=== PATIENT | female | born 1945 | race Caucasian/White ===

== ENCOUNTER 2017-08-27 14:58 | Inpatient (IN) | payer MEDICAID, OTHER ==
[~2017-08-27] VITALS: Ht 154.9 cm; Wt 78.5 kg
[~2017-08-27 14:58] MED LIST: ALBU6.7H INH; ATOR20TA65 PO; CARV25TA47 PO; DIGO250T4 PO; FAMO20TA8 PO; FERR-63 PO; FURO80TA3 PO; LISI30TA36 PO; METH500T PO; NITR0.4T SL; RIVA20TA PO; SOTA80TA PO; iron PO
[2017-08-27 17:25] LABS: BASOPHILS % 0.8 % (0.0-2.0); HEMOGLOBIN. 12.8 g/dL (12.0-16.0); LYMPHOCYTES % 13.5 % (20.0-50.0); MEAN CORPUSCULAR HEMOGLOBIN 31.1 pg (28.0-32.0); MEAN CORPUSCULAR VOLUME 92.2 fL (81.0-99.0); MEAN PLATELET VOLUME 9.6 fl (7.4-10.4); MONOCYTES % 11.8 % (2.0-8.0); NEUTROPHILS % 70.9 % (40.0-76.0); PLATELET 282 x1000/uL (130-400); RED BLOOD CELL COUNT 4.12 mill/uL (4.2-5.4); RED CELL DISTRIBUTION WIDTH 13.7 % (11.6-14.6)
[2017-08-27 17:31] LABS: CHLORIDE 104 mEq/L (98-107)
[2017-08-27 17:34] LABS: INR 1.2; PROTHROMBIN TIME 12.7 sec (9.4-11.6)
[2017-08-27] MEDS ORDERED: MAGNESIUM/ALUMINUM HYDROXIDE/SIMETHICONE 30ML UDC PO STA (19:48)
[2017-08-27] MEDS ORDERED: ASPIRIN 81MG TABLET PO ONE (20:00)
[2017-08-27] MEDS ORDERED: FUROSEMIDE 20MG TABLET PO ONE (20:00)
[2017-08-27] MEDS ORDERED: GUAIFENESIN/CODEINE 100-10MG/5ML UDC PO ONE (21:45)
[2017-08-28] VITALS (7 sets, daily range): BP systolic 96–120; BP diastolic 43–72
[2017-08-28] MEDS ORDERED: SUCR1TAB30 PO (02:10)
[2017-08-28] MEDS ORDERED: ONDA4SOL2 PO (02:10)
[2017-08-28] MEDS ORDERED: OMEP20TA2 PO (02:10)
[2017-08-28] MEDS ORDERED: LISI-604 PO (02:11)
[2017-08-28 02:29] LABS: CREATINE KINASE MB FRACTION 0.7 ng/mL (0.5-3.6)
[2017-08-28] MEDS: HYDROCODONE/ACETAMINOPHEN 5/325MG TABLET PO PRN ×3 (03:19→21:35)
[2017-08-28] MEDS: IPRATROPIUM/ALBUTEROL 0.5-3(2.5)MG/3ML NEB HHN SCH ×5 (04:17→21:18)
[2017-08-28 05:26] LABS: *AMPHETAMINES SCREEN URINE NEGATIVE (NEGATIVE)
[2017-08-28 05:27] LABS: *BARBITURATES SCREEN URINE NEGATIVE (NEGATIVE); *BENZODIAZEPINES SCREEN URINE NEGATIVE (NEGATIVE); *COCAINE SCREEN URINE NEGATIVE (NEGATIVE); METHADONE URINE SCREEN NEGATIVE (NEGATIVE); OPIATES URINE SCREEN PRESUMTIVE POSITIVE (NEGATIVE)
[2017-08-28 05:28] LABS: CANNABINOID URINE SCREEN NEGATIVE (NEGATIVE)
[2017-08-28 06:46] LABS: PHENCYCLIDINE URINE SCREEN NEGATIVE (NEGATIVE)
[2017-08-28] MEDS: DIGOXIN 125MCG TABLET PO SCH (08:40)
[2017-08-28] MEDS: CARVEDILOL 25MG TABLET PO SCH ×2 (08:42→21:00)
[2017-08-28] MEDS: LISINOPRIL 20MG TABLET PO SCH ×2 (08:43→21:00)
[2017-08-28] MEDS: FERROUS SULFATE 325MG TABLET PO SCH (08:56)
[2017-08-28] MEDS: SUCRALFATE 1G TABLET PO SCH ×4 (08:56→21:28)
[2017-08-28] MEDS ORDERED: FUROSEMIDE 40MG TABLET PO SCH (09:00)
[2017-08-28] MEDS ORDERED: ENOXAPARIN 30MG/0.3ML SYR SUBCUT SCH (09:00)
[2017-08-28 12:22] LABS: BASOPHILS % 0.4 % (0.0-2.0); EOSINOPHILS % 3.2 % (0.0-5.0); HEMATOCRIT. 35.7 % (36.0-48.0); HEMOGLOBIN. 11.8 g/dL (12.0-16.0); LYMPHOCYTES % 13.2 % (20.0-50.0); MEAN CORPUSCULAR HEMOGLOBIN 30.6 pg (28.0-32.0); MEAN CORPUSCULAR VOLUME 92.5 fL (81.0-99.0); MEAN PLATELET VOLUME 9.7 fl (7.4-10.4); MONOCYTES % 13.4 % (2.0-8.0); NEUTROPHILS % 69.8 % (40.0-76.0); PLATELET 274 x1000/uL (130-400); RED BLOOD CELL COUNT 3.85 mill/uL (4.2-5.4); RED CELL DISTRIBUTION WIDTH 13.8 % (11.6-14.6)
[2017-08-28 12:30] LABS: CHLORIDE 104 mEq/L (98-107)
[2017-08-28 12:38] LABS: PHOSPHORUS 2.1 mg/dL (2.5-4.9)
[2017-08-28 12:43] LABS: CREATINE KINASE MB FRACTION 0.6 ng/mL (0.5-3.6)
[2017-08-28] MEDS: GUAIFENESIN-DM 200MG-20MG/10ML UDC PO PRN ×3 (13:51→21:35)
[2017-08-28] MEDS: RIVAROXABAN 20 MG TABLET PO SCH (17:57)
[2017-08-28] MEDS: ATORVASTATIN CALCIUM 20MG TABLET PO SCH (21:28)
[2017-08-29] VITALS (11 sets, daily range): BP systolic 97–130; BP diastolic 50–79
[2017-08-29] MEDS: IPRATROPIUM/ALBUTEROL 0.5-3(2.5)MG/3ML NEB HHN SCH ×2 (01:51→05:45)
[2017-08-29] MEDS: FUROSEMIDE 40MG TABLET PO SCH (09:43)
[2017-08-29] MEDS: SUCRALFATE 1G TABLET PO SCH ×4 (09:43→21:24)
[2017-08-29] MEDS: FERROUS SULFATE 325MG TABLET PO SCH (09:43)
[2017-08-29] MEDS: CARVEDILOL 25MG TABLET PO SCH ×2 (09:44→21:25)
[2017-08-29] MEDS: DIGOXIN 125MCG TABLET PO SCH (09:45)
[2017-08-29] MEDS: LISINOPRIL 20MG TABLET PO SCH (09:45)
[2017-08-29 11:30] LABS: BG BASE EXCESS 6.1 mmol/L (-2.0-2.0); BG CARBOXYHEMOGLOBIN 0.5 % (0.5-1.5); BG DEOXYHEMOGLOBIN 2.9 % (0.0-5.0); BG FRACTION INSPIRED OXYGEN 40; BG HCO3 ACT 30.7 mmol/L (22.0-26.0); BG METHEMOGLOBIN 0.3 % (0.0-1.5); BG OXYGEN SATURATION 97.1 % (92.0-98.5); BG OXYHEMOGLOBIN 96.3 % (94.0-97.0); BG PCO2 44.2 mmHg (35.0-45.0); BG PO2 90.8 mmHg (75.0-100.0); BG SAMPLE SITE LEFT RADIAL; BG TOTAL HEMOGLOBIN 13.4 g/dL (12.0-18.0); BG VENT MODE NASAL CANNULA
[2017-08-29] MEDS: GUAIFENESIN-DM 200MG-20MG/10ML UDC PO PRN ×3 (12:20→23:56)
[2017-08-29] MEDS ORDERED: IPRATROPIUM BROMIDE (0.02%) 0.5MG/2.5ML NEB HHN PRN (13:45)
[2017-08-29] MEDS: DILTIAZEM HCL 30MG TABLET PO SCH ×2 (14:56→21:25)
[2017-08-29] MEDS: BUDESONIDE 0.5MG/2ML NEB HHN SCH (15:14)
[2017-08-29] MEDS: IPRATROPIUM BROMIDE (0.02%) 0.5MG/2.5ML NEB HHN SCH ×2 (15:15→20:25)
[2017-08-29] MEDS: RIVAROXABAN 20 MG TABLET PO SCH (16:21)
[2017-08-29] MEDS ORDERED: ALBUTEROL (0.083%) 2.5MG/3ML NEB HHN NR (20:45)
[2017-08-29] MEDS: GUAIFENESIN 600MG ER TABLET PO SCH (21:24)
[2017-08-29] MEDS: ATORVASTATIN CALCIUM 20MG TABLET PO SCH (21:24)
[2017-08-30] VITALS (12 sets, daily range): BP systolic 90–144; BP diastolic 52–88
[2017-08-30] MEDS: IPRATROPIUM/ALBUTEROL 0.5-3(2.5)MG/3ML NEB HHN SCH ×6 (00:25→21:07)
[2017-08-30] MEDS: BUDESONIDE 0.5MG/2ML NEB HHN SCH ×3 (00:27→21:08)
[2017-08-30] MEDS: DILTIAZEM HCL 30MG TABLET PO SCH ×3 (06:00→22:00)
[2017-08-30] MEDS: GUAIFENESIN 600MG ER TABLET PO SCH ×2 (09:59→20:35)
[2017-08-30] MEDS: SUCRALFATE 1G TABLET PO SCH ×4 (09:59→20:35)
[2017-08-30] MEDS: FERROUS SULFATE 325MG TABLET PO SCH (09:59)
[2017-08-30] MEDS: LISINOPRIL 20MG TABLET PO SCH (09:59)
[2017-08-30] MEDS: FUROSEMIDE 40MG TABLET PO SCH (10:00)
[2017-08-30] MEDS: CARVEDILOL 25MG TABLET PO SCH ×2 (10:00→20:50)
[2017-08-30] MEDS: DIGOXIN 125MCG TABLET PO SCH (10:00)
[2017-08-30] MEDS: BENZONATATE 100MG CAPSULE PO SCH ×3 (14:00→21:29)
[2017-08-30] MEDS: RIVAROXABAN 20 MG TABLET PO SCH (17:50)
[2017-08-30] MEDS: ATORVASTATIN CALCIUM 20MG TABLET PO SCH (20:36)
[2017-08-30] MEDS: HYDROCODONE/ACETAMINOPHEN 5/325MG TABLET PO PRN (21:30)
[2017-08-31] VITALS (12 sets, daily range): BP systolic 102–130; BP diastolic 38–75
[2017-08-31] MEDS: GUAIFENESIN-DM 200MG-20MG/10ML UDC PO PRN ×5 (00:16→23:53)
[2017-08-31] MEDS: IPRATROPIUM/ALBUTEROL 0.5-3(2.5)MG/3ML NEB HHN SCH ×6 (00:49→20:55)
[2017-08-31] MEDS: ZOLPIDEM TARTRATE 5MG TABLET PO PRN ×2 (01:48→22:28)
[2017-08-31] MEDS: HYDROCODONE/ACETAMINOPHEN 5/325MG TABLET PO PRN ×2 (03:59→10:19)
[2017-08-31] MEDS: DILTIAZEM HCL 30MG TABLET PO SCH ×3 (05:49→22:26)
[2017-08-31] MEDS: BENZONATATE 100MG CAPSULE PO SCH ×3 (06:02→22:25)
[2017-08-31] MEDS: BUDESONIDE 0.5MG/2ML NEB HHN SCH (08:04)
[2017-08-31] MEDS: LISINOPRIL 20MG TABLET PO SCH (09:00)
[2017-08-31] MEDS: CARVEDILOL 25MG TABLET PO SCH ×2 (09:00→22:26)
[2017-08-31] MEDS: SUCRALFATE 1G TABLET PO SCH ×4 (10:14→22:24)
[2017-08-31] MEDS: FUROSEMIDE 40MG TABLET PO SCH (10:14)
[2017-08-31] MEDS: GUAIFENESIN 600MG ER TABLET PO SCH ×2 (10:14→22:25)
[2017-08-31] MEDS: FERROUS SULFATE 325MG TABLET PO SCH (10:14)
[2017-08-31] MEDS: DIGOXIN 125MCG TABLET PO SCH (10:17)
[2017-08-31 15:21] LABS: HEMATOCRIT 38.4 % (36.0-48.0); HEMOGLOBIN 12.3 g/dL (12.0-16.0); MEAN CORPUSCULAR HEMOGLOBIN 29.9 pg (28.0-32.0); MEAN CORPUSCULAR VOLUME 93.3 fL (81.0-99.0); PLATELET 294 x1000/uL (130-400); RED BLOOD CELL COUNT 4.11 mill/uL (4.2-5.4); RED CELL DISTRIBUTION WIDTH 13.4 % (11.6-14.6)
[2017-08-31 15:28] LABS: CHLORIDE 100 mEq/L (98-107)
[2017-08-31] MEDS: RIVAROXABAN 20 MG TABLET PO SCH (17:40)
[2017-08-31] MEDS: ATORVASTATIN CALCIUM 20MG TABLET PO SCH (22:25)
[2017-09-01] VITALS (12 sets, daily range): BP systolic 92–132; BP diastolic 38–75
[2017-09-01] MEDS: IPRATROPIUM/ALBUTEROL 0.5-3(2.5)MG/3ML NEB HHN SCH ×5 (00:45→19:55)
[2017-09-01] MEDS: GUAIFENESIN-DM 200MG-20MG/10ML UDC PO PRN ×4 (04:06→22:36)
[2017-09-01] MEDS: HYDROCODONE/ACETAMINOPHEN 5/325MG TABLET PO PRN ×2 (04:10→22:41)
[2017-09-01] MEDS: DILTIAZEM HCL 30MG TABLET PO SCH ×3 (06:00→21:27)
[2017-09-01] MEDS: BENZONATATE 100MG CAPSULE PO SCH ×3 (06:23→21:27)
[2017-09-01] MEDS: FERROUS SULFATE 325MG TABLET PO SCH (08:50)
[2017-09-01] MEDS: CARVEDILOL 25MG TABLET PO SCH ×2 (08:51→20:21)
[2017-09-01] MEDS: SUCRALFATE 1G TABLET PO SCH ×4 (08:51→20:20)
[2017-09-01] MEDS: FUROSEMIDE 40MG TABLET PO SCH (08:52)
[2017-09-01] MEDS: LISINOPRIL 20MG TABLET PO SCH (08:52)
[2017-09-01] MEDS: GUAIFENESIN 600MG ER TABLET PO SCH ×2 (08:52→20:21)
[2017-09-01] MEDS: DIGOXIN 125MCG TABLET PO SCH (08:52)
[2017-09-01] MEDS: RIVAROXABAN 20 MG TABLET PO SCH (17:30)
[2017-09-01] MEDS: ATORVASTATIN CALCIUM 20MG TABLET PO SCH (20:21)
[2017-09-02] VITALS (12 sets, daily range): BP systolic 98–132; BP diastolic 51–71
[2017-09-02] MEDS: IPRATROPIUM/ALBUTEROL 0.5-3(2.5)MG/3ML NEB HHN SCH ×6 (00:25→20:20)
[2017-09-02] MEDS: BENZONATATE 100MG CAPSULE PO SCH ×3 (06:29→21:17)
[2017-09-02] MEDS: DILTIAZEM HCL 30MG TABLET PO SCH ×3 (06:29→21:18)
[2017-09-02 06:49] LABS: BASOPHILS % 0.3 % (0.0-2.0); EOSINOPHILS % 3.1 % (0.0-5.0); HEMOGLOBIN. 11.7 g/dL (12.0-16.0); LYMPHOCYTES % 16.7 % (20.0-50.0); MEAN CORPUSCULAR HEMOGLOBIN 29.9 pg (28.0-32.0); MEAN PLATELET VOLUME 8.8 fl (7.4-10.4); NEUTROPHILS % 66.9 % (40.0-76.0); PLATELET 336 x1000/uL (130-400); RED BLOOD CELL COUNT 3.92 mill/uL (4.2-5.4); RED CELL DISTRIBUTION WIDTH 13.3 % (11.6-14.6)
[2017-09-02] MEDS: BUDESONIDE 0.5MG/2ML NEB HHN SCH ×2 (07:24→20:20)
[2017-09-02 07:43] LABS: CHLORIDE 103 mEq/L (98-107)
[2017-09-02] MEDS: DIGOXIN 125MCG TABLET PO SCH (08:41)
[2017-09-02] MEDS: LISINOPRIL 20MG TABLET PO SCH (08:41)
[2017-09-02] MEDS: SUCRALFATE 1G TABLET PO SCH ×4 (08:41→21:17)
[2017-09-02] MEDS: FERROUS SULFATE 325MG TABLET PO SCH (08:41)
[2017-09-02] MEDS: CARVEDILOL 25MG TABLET PO SCH ×2 (08:41→21:17)
[2017-09-02] MEDS: FUROSEMIDE 40MG TABLET PO SCH (08:41)
[2017-09-02] MEDS: GUAIFENESIN-DM 200MG-20MG/10ML UDC PO PRN ×3 (08:41→14:39)
[2017-09-02] MEDS: GUAIFENESIN 600MG ER TABLET PO SCH ×2 (08:44→21:17)
[2017-09-02] MEDS: RIVAROXABAN 20 MG TABLET PO SCH (17:02)
[2017-09-02] MEDS: METFORMIN HCL 500MG TABLET PO SCH (17:06)
[2017-09-02] MEDS ORDERED: HYDROCODONE/ACETAMINOPHEN 5/325MG TABLET PO PRN (19:00)
[2017-09-02] MEDS: ATORVASTATIN CALCIUM 20MG TABLET PO SCH (21:17)
[2017-09-03] VITALS (9 sets, daily range): BP systolic 93–139; BP diastolic 42–69
[2017-09-03] MEDS: IPRATROPIUM/ALBUTEROL 0.5-3(2.5)MG/3ML NEB HHN SCH ×6 (00:41→21:50)
[2017-09-03] MEDS: ZOLPIDEM TARTRATE 5MG TABLET PO PRN ×2 (00:42→21:37)
[2017-09-03] MEDS: GUAIFENESIN-DM 200MG-20MG/10ML UDC PO PRN ×4 (03:49→17:09)
[2017-09-03 05:44] LABS: BASOPHILS % 0.6 % (0.0-2.0); EOSINOPHILS % 2.8 % (0.0-5.0); HEMATOCRIT. 37.4 % (36.0-48.0); HEMOGLOBIN. 12.2 g/dL (12.0-16.0); LYMPHOCYTES % 19.5 % (20.0-50.0); MEAN CORPUSCULAR VOLUME 91.7 fL (81.0-99.0); MEAN PLATELET VOLUME 8.9 fl (7.4-10.4); MONOCYTES % 12.2 % (2.0-8.0); NEUTROPHILS % 64.9 % (40.0-76.0); PLATELET 363 x1000/uL (130-400); RED BLOOD CELL COUNT 4.07 mill/uL (4.2-5.4); RED CELL DISTRIBUTION WIDTH 13.5 % (11.6-14.6)
[2017-09-03] MEDS: BENZONATATE 100MG CAPSULE PO SCH ×3 (06:31→21:37)
[2017-09-03] MEDS: DILTIAZEM HCL 30MG TABLET PO SCH ×3 (06:31→21:38)
[2017-09-03 07:36] LABS: CHLORIDE 102 mEq/L (98-107)
[2017-09-03] MEDS: BUDESONIDE 0.5MG/2ML NEB HHN SCH ×2 (08:19→21:50)
[2017-09-03] MEDS: GUAIFENESIN 600MG ER TABLET PO SCH ×2 (08:26→21:37)
[2017-09-03] MEDS: DIGOXIN 125MCG TABLET PO SCH (08:26)
[2017-09-03] MEDS: SUCRALFATE 1G TABLET PO SCH ×4 (08:26→21:37)
[2017-09-03] MEDS: FUROSEMIDE 40MG TABLET PO SCH (08:26)
[2017-09-03] MEDS: CARVEDILOL 25MG TABLET PO SCH ×2 (08:26→21:00)
[2017-09-03] MEDS: FERROUS SULFATE 325MG TABLET PO SCH (08:26)
[2017-09-03] MEDS: LISINOPRIL 20MG TABLET PO SCH (08:26)
[2017-09-03] MEDS: METFORMIN HCL 500MG TABLET PO SCH ×2 (08:26→17:09)
[2017-09-03] MEDS: RIVAROXABAN 20 MG TABLET PO SCH (17:10)
[2017-09-03] MEDS: ATORVASTATIN CALCIUM 20MG TABLET PO SCH (21:37)
[2017-09-04] VITALS: BP 140/80
[2017-09-04] MEDS: GUAIFENESIN-DM 200MG-20MG/10ML UDC PO PRN ×3 (00:04→11:33)
[2017-09-04] MEDS: IPRATROPIUM/ALBUTEROL 0.5-3(2.5)MG/3ML NEB HHN SCH ×4 (00:21→13:18)
[2017-09-04 04:00] VITALS: BP 123/72
[2017-09-04] MEDS: DILTIAZEM HCL 30MG TABLET PO SCH ×2 (06:00→14:00)
[2017-09-04] MEDS: BENZONATATE 100MG CAPSULE PO SCH ×2 (06:27→14:37)
[2017-09-04 07:12] LABS: BASOPHILS % 0.3 % (0.0-2.0); EOSINOPHILS % 2.8 % (0.0-5.0); HEMOGLOBIN. 12.4 g/dL (12.0-16.0); LYMPHOCYTES % 15.9 % (20.0-50.0); MEAN CORPUSCULAR HEMOGLOBIN 30.2 pg (28.0-32.0); MEAN CORPUSCULAR VOLUME 92.4 fL (81.0-99.0); MEAN PLATELET VOLUME 8.5 fl (7.4-10.4); MONOCYTES % 10.6 % (2.0-8.0); NEUTROPHILS % 70.4 % (40.0-76.0); PLATELET 344 x1000/uL (130-400); RED BLOOD CELL COUNT 4.11 mill/uL (4.2-5.4); RED CELL DISTRIBUTION WIDTH 13.7 % (11.6-14.6)
[2017-09-04 07:16] LABS: CHLORIDE 106 mEq/L (98-107)
[2017-09-04] MEDS: GUAIFENESIN 600MG ER TABLET PO SCH (08:10)
[2017-09-04] MEDS: METFORMIN HCL 500MG TABLET PO SCH (08:10)
[2017-09-04] MEDS: CARVEDILOL 25MG TABLET PO SCH (08:10)
[2017-09-04] MEDS: FUROSEMIDE 40MG TABLET PO SCH (08:10)
[2017-09-04] MEDS: SUCRALFATE 1G TABLET PO SCH ×2 (08:10→12:48)
[2017-09-04] MEDS: DIGOXIN 125MCG TABLET PO SCH (08:10)
[2017-09-04] MEDS: FERROUS SULFATE 325MG TABLET PO SCH (08:10)
[2017-09-04] MEDS: LISINOPRIL 20MG TABLET PO SCH (08:10)
[2017-09-04 08:29] VITALS: BP 121/78
[2017-09-04] MEDS: BUDESONIDE 0.5MG/2ML NEB HHN SCH (09:15)
[2017-09-04 12:24] VITALS: BP 105/68
[2017-09-04] MEDS ORDERED: ESOM40CA MT (12:46)
[2017-09-04 13:38] VITALS: BP 104/63
== END 2017-09-04 17:10 | disposition home or self-care (01) | DRG 190 ==
LOC: ER 15:03 → 7WST 21:19 → EDBEDREQTM 21:26 → EDBEDREQ 21:26 → ENRESERV 21:39 → 7WST 08-28 00:27 → 5EST 08-29 11:50
PROVIDERS: ADMIT Internal Medicine; ATTEND Internal Medicine
DX: I21.4 Non-ST elevation (NSTEMI) myocardial infarction (principal); J96.00 Acute respiratory failure, unspecified whether with hypoxia or hypercapnia; I50.43 Acute on chronic combined systolic (congestive) and diastolic (congestive) heart failure; E44.0 Moderate protein-calorie malnutrition; I48.0 Paroxysmal atrial fibrillation; J44.9 Chronic obstructive pulmonary disease, unspecified; E11.65 Type 2 diabetes mellitus with hyperglycemia; I48.2 Chronic atrial fibrillation; E78.5 Hyperlipidemia, unspecified; K44.9 Diaphragmatic hernia without obstruction or gangrene; I11.0 Hypertensive heart disease with heart failure; K80.20 Calculus of gallbladder without cholecystitis without obstruction; G89.29 Other chronic pain; Z79.01 Long term (current) use of anticoagulants; Z79.84 Long term (current) use of oral hypoglycemic drugs; Z79.899 Other long term (current) drug therapy; Z88.8 Allergy status to other drugs, medicaments and biological substances; Z68.32 Body mass index [BMI] 32.0-32.9, adult
CPT/HCPCS: 36415; 36600; 71045; 74176; 76700; 80048; 80053; 80061; 80162; 80305; 82375; 82550; 82553; 82805; 83036; 83735; 83880; 84100; 84443; 84484; 85025; 85027; 85610; 93005; 93306; 93970; 94618; 94640; 99285; J1650; J7030; J7611; J7620; J7626

== ENCOUNTER 2019-02-17 16:35 | Inpatient (IN) | payer MEDICAID, OTHER ==
[~2019-02-17] VITALS: Ht 165.1 cm; Wt 79.8 kg
[~2019-02-17 16:35] MED LIST changes: +ESOM40CA MT; -FURO80TA3 PO; +LISI-604 PO; -LISI30TA36 PO; -METH500T PO; +OMEP20TA2 PO; +ONDA4SOL2 PO; -SOTA80TA PO; +SUCR1TAB30 PO
[2019-02-17] MEDS ORDERED: LOSA25TA26 PO (16:57)
[2019-02-17] MEDS ORDERED: FURO80TA3 PO (16:57)
[2019-02-17] MEDS ORDERED: ACET-2708 PO (16:57)
[2019-02-17] MEDS ORDERED: RIVA20TA PO (16:58)
[2019-02-17 18:04] LABS: BASOPHILS % 0.6 % (0.0-2.0); EOSINOPHILS % 4.1 % (0.0-5.0); LYMPHOCYTES % 19.8 % (20.0-50.0); MEAN CORPUSCULAR HEMOGLOBIN 30.9 pg (28.0-32.0); MEAN CORPUSCULAR VOLUME 94.9 fL (81.0-99.0); MEAN PLATELET VOLUME 9.4 fl (7.4-10.4); MONOCYTES % 12.5 % (2.0-8.0); PLATELET 268 x1000/uL (130-400); RED BLOOD CELL COUNT 4.21 mill/uL (4.2-5.4); RED CELL DISTRIBUTION WIDTH 13.6 % (11.6-14.6)
[2019-02-17 18:05] LABS: CHLORIDE 106 mEq/L (98-107); INR 1.2; PROTHROMBIN TIME 11.8 sec (9.6-11.0)
[2019-02-17] MEDS ORDERED: MECLIZINE 25MG TABLET PO ONE (19:15)
[2019-02-17] MEDS ORDERED: ASPIRIN 325MG EC TABLET PO ONE (19:15)
[2019-02-17] MEDS ORDERED: SODIUM CHLORIDE 0.9% 1,000 ML IV ONE (19:15)
[2019-02-17 19:36] LABS: CLARITY URINE CLEAR (CLEAR); COLOR URINE YELLOW (YELLOW); KETONES URINE NEGATIVE (NEGATIVE); LEUKOCYTE ESTERASE URINE 2+ (NEGATIVE); NITRITE URINE NEGATIVE (NEGATIVE); OCCULT BLOOD URINE TRACE (NEGATIVE); PROTEIN URINE NEGATIVE (NEGATIVE); SPECIFIC GRAVITY URINE 1.012 (1.005-1.030)
[2019-02-17] MEDS ORDERED: CEFTRIAXONE 1 G PREMIX 50 ML IV ONE (21:00)
[2019-02-17 22:15] VITALS: BP 125/78
[2019-02-17 22:20] VITALS: BP 140/74
[2019-02-18] VITALS (7 sets, daily range): BP systolic 109–129; BP diastolic 49–73
[2019-02-18] MEDS ORDERED: LEVOFLOXACIN 500MG PREMIX 100 ML IV SCH (01:15)
[2019-02-18] MEDS ORDERED: CLONIDINE 0.1MG TABLET PO PRN (01:15)
[2019-02-18] MEDS ORDERED: DOCUSATE SODIUM 100MG CAPSULE PO PRN (01:15)
[2019-02-18] MEDS ORDERED: ONDANSETRON HCL 4MG/2ML INJ IV PRN (01:15)
[2019-02-18] MEDS ORDERED: GUAIFENESIN 200MG/10ML SUGAR FREE UDC PO PRN (01:15)
[2019-02-18] MEDS: HYDROCODONE/ACETAMINOPHEN 5/325MG TABLET PO PRN ×3 (02:03→21:41)
[2019-02-18] MEDS: AMLODIPINE 10MG TABLET PO SCH (08:45)
[2019-02-18] MEDS: ASPIRIN 81MG EC TABLET PO SCH (08:45)
[2019-02-18] MEDS: LEVOFLOXACIN 500MG PREMIX 100 ML IV SCH (08:50)
[2019-02-18] MEDS ORDERED: ENOXAPARIN 40MG/0.4ML SYR SUBCUT SCH (09:00)
[2019-02-18] MEDS ORDERED: ALBUTEROL 6.7GM HFA INHALER INH SCH (09:15)
[2019-02-18] MEDS ORDERED: NITROGLYCERIN 0.4MG TABLET SL SL PRN (09:15)
[2019-02-18] MEDS ORDERED: MECLIZINE 25MG TABLET PO PRN (09:15)
[2019-02-18] MEDS ORDERED: FAMOTIDINE(NEO) 1MG/ML SUSP PO SCH (09:30)
[2019-02-18] MEDS ORDERED: SODIUM CHLORIDE 0.45% 1,000 ML IV SCH (10:45)
[2019-02-18] MEDS: LOSARTAN POTASSIUM 25 MG TABLET PO SCH (11:45)
[2019-02-18] MEDS: FERROUS SULFATE 325MG TABLET PO SCH (11:45)
[2019-02-18] MEDS: LISINOPRIL 20MG TABLET PO SCH ×2 (11:56→21:41)
[2019-02-18] MEDS ORDERED: RIVAROXABAN 20 MG TABLET PO SCH (17:00)
[2019-02-18] MEDS ORDERED: DIGOXIN 125MCG TABLET PO SCH (18:00)
[2019-02-18] MEDS: ALBUTEROL (0.083%) 2.5MG/3ML NEB HHN SCH (20:00)
[2019-02-18] MEDS ORDERED: ZOLPIDEM TARTRATE 5MG TABLET PO PRN (20:15)
[2019-02-18] MEDS ORDERED: ATORVASTATIN CALCIUM 20MG TABLET PO SCH (21:00)
[2019-02-19] VITALS: BP 114/81
[2019-02-19] MEDS: ALBUTEROL (0.083%) 2.5MG/3ML NEB HHN SCH ×4 (01:02→11:46)
[2019-02-19 04:00] VITALS: BP 130/67
[2019-02-19 07:22] LABS: BASOPHILS % 0.5 % (0.0-2.0); EOSINOPHILS % 8.9 % (0.0-5.0); HEMATOCRIT. 37.5 % (36.0-48.0); HEMOGLOBIN. 12.3 g/dL (12.0-16.0); LYMPHOCYTES % 25.1 % (20.0-50.0); MEAN CORPUSCULAR HEMOGLOBIN 31.3 pg (28.0-32.0); MEAN CORPUSCULAR VOLUME 95.1 fL (81.0-99.0); MEAN PLATELET VOLUME 9.6 fl (7.4-10.4); MONOCYTES % 12.6 % (2.0-8.0); NEUTROPHILS % 52.9 % (40.0-76.0); PLATELET 236 x1000/uL (130-400); RED BLOOD CELL COUNT 3.94 mill/uL (4.2-5.4); RED CELL DISTRIBUTION WIDTH 13.7 % (11.6-14.6)
[2019-02-19 08:00] VITALS: BP 126/67
[2019-02-19] MEDS: ASPIRIN 81MG EC TABLET PO SCH (08:26)
[2019-02-19] MEDS: LISINOPRIL 20MG TABLET PO SCH (08:26)
[2019-02-19] MEDS: AMLODIPINE 10MG TABLET PO SCH (08:27)
[2019-02-19] MEDS: LOSARTAN POTASSIUM 25 MG TABLET PO SCH (08:27)
[2019-02-19] MEDS: FERROUS SULFATE 325MG TABLET PO SCH (08:29)
[2019-02-19] MEDS: LEVOFLOXACIN 500MG PREMIX 100 ML IV SCH (08:29)
[2019-02-19 08:37] LABS: CHLORIDE 106 mEq/L (98-107)
[2019-02-19 08:56] LABS: LDL CHOLESTEROL 38 mg/dL (5-100)
[2019-02-19 08:57] LABS: T4 FREE 0.88 ng/dL (0.76-1.46)
[2019-02-19 08:59] LABS: HDL CHOLESTEROL 24 mg/dL (40-59)
[2019-02-19] MEDS ORDERED: FAMOTIDINE 20MG TABLET PO SCH (09:00)
[2019-02-19 12:00] VITALS: BP 117/59
[2019-02-19 14:47] VITALS: BP 117/59
[2019-02-19 16:09] VITALS: BP 110/67
[2019-02-20] MEDS ORDERED: LEVOFLOXACIN 500MG TABLET PO SCH (11:00)
== END 2019-02-19 15:50 | disposition home or self-care (01) | DRG 201 ==
LOC: ER 18:38 → EDBEDREQTM 19:46 → EDBEDREQ 19:46 → 7WST 20:48 → EDBEDREQ 20:50 → ENRESERV 21:01
PROVIDERS: ADMIT Hospitalist; ATTEND Hospitalist
DX: R00.1 Bradycardia, unspecified (principal); D68.59 Other primary thrombophilia; E11.9 Type 2 diabetes mellitus without complications; I48.91 Unspecified atrial fibrillation; E78.5 Hyperlipidemia, unspecified; I10 Essential (primary) hypertension; T44.7X5A Adverse effect of beta-adrenoreceptor antagonists, initial encounter; K21.9 Gastro-esophageal reflux disease without esophagitis; T46.0X5A Adverse effect of cardiac-stimulant glycosides and drugs of similar action, initial encounter; E78.00 Pure hypercholesterolemia, unspecified; L50.9 Urticaria, unspecified; Z79.01 Long term (current) use of anticoagulants; Z88.8 Allergy status to other drugs, medicaments and biological substances; Z79.899 Other long term (current) drug therapy; Y92.89 Other specified places as the place of occurrence of the external cause
CPT/HCPCS: 36415; 71045; 80061; 80162; 81003; 82550; 83036; 83735; 84439; 84443; 84484; 93005; 93306; 93880; 93970; 94640; 97162; 99285; J0696; J1650; J1956; J7030; J7611; J8597

== ENCOUNTER 2019-02-28 21:42 | Inpatient (IN) | payer MEDICAID, OTHER ==
[~2019-02-28] VITALS: Ht 154.9 cm; Wt 80.7 kg
[~2019-02-28 21:42] MED LIST changes: +ACET-2708 PO; -CARV25TA47 PO; -DIGO250T4 PO; +FURO80TA3 PO; +LOSA25TA26 PO; -OMEP20TA2 PO
[2019-02-28] MEDS ORDERED: DILTIAZEM HCL 5MG/ML 5ML VIAL IV ONE (22:15)
[2019-02-28] MEDS ORDERED: ASPIRIN 81MG TABLET PO ONE (22:15)
[2019-02-28 22:47] LABS: BASOPHILS % 0.6 % (0.0-2.0); EOSINOPHILS % 3.5 % (0.0-5.0); HEMATOCRIT. 41.2 % (36.0-48.0); HEMOGLOBIN. 13.5 g/dL (12.0-16.0); LYMPHOCYTES % 16.6 % (20.0-50.0); MEAN CORPUSCULAR HEMOGLOBIN 31.2 pg (28.0-32.0); MEAN CORPUSCULAR VOLUME 94.9 fL (81.0-99.0); MEAN PLATELET VOLUME 9.3 fl (7.4-10.4); MONOCYTES % 9.4 % (2.0-8.0); NEUTROPHILS % 69.9 % (40.0-76.0); PLATELET 287 x1000/uL (130-400); RED BLOOD CELL COUNT 4.34 mill/uL (4.2-5.4)
[2019-02-28 22:50] LABS: CHLORIDE 104 mEq/L (98-107)
[2019-02-28] MEDS ORDERED: ONDANSETRON HCL 4MG/2ML INJ IV ONE (23:00)
[2019-03-01] VITALS (27 sets, daily range): BP systolic 97–151; BP diastolic 46–93
[2019-03-01] MEDS ORDERED: MORPHINE SULFATE 4 MG/ML CPJ (NOT FOR IM USE) IV ONE (01:45)
[2019-03-01] MEDS ORDERED: DILTIAZEM HCL 5MG/ML 5ML VIAL IV ONE (02:30)
[2019-03-01] MEDS ORDERED: DILTIAZEM HCL 125 MG in DEXT 5% WATER 100 ML IV ONE (02:30)
[2019-03-01] MEDS ORDERED: IOHEXOL-350 100 ML BOTTLE ONE (02:54)
[2019-03-01] MEDS ORDERED: DILTIAZEM HCL 125 MG in DEXT 5% WATER 100 ML IV NR (03:00)
[2019-03-01] MEDS ORDERED: SODIUM CHLORIDE 0.9% 1,000 ML IV ONE (03:15)
[2019-03-01] MEDS ORDERED: DIPHENHYDRAMINE 50MG/ML VIAL IV PRN (07:15)
[2019-03-01] MEDS ORDERED: LORAZEPAM 2MG/ML CPJ IV PRN (07:15)
[2019-03-01] MEDS ORDERED: IPRATROPIUM/ALBUTEROL 0.5-3(2.5)MG/3ML NEB HHN PRN (07:15)
[2019-03-01] MEDS ORDERED: DEXTROSE 50% WATER 50ML SYRINGE IV PRN ×2 (07:15→11:15)
[2019-03-01] MEDS ORDERED: MORPHINE SULFATE 2 MG/ML CPJ (NOT FOR IM USE) IV PRN (07:15)
[2019-03-01] MEDS ORDERED: HYDRALAZINE 20MG/ML VIAL IV PRN (07:15)
[2019-03-01] MEDS ORDERED: ACETAMINOPHEN 325MG TABLET PO PRN (07:15)
[2019-03-01] MEDS ORDERED: MAGNESIUM/ALUMINUM HYDROXIDE/SIMETHICONE 30ML UDC PO PRN (07:15)
[2019-03-01] MEDS ORDERED: DILTIAZEM HCL 125 MG in DEXT 5% WATER 100 ML IV PRN (07:15)
[2019-03-01] MEDS ORDERED: CLONIDINE 0.1MG TABLET PO PRN (07:15)
[2019-03-01] MEDS ORDERED: ONDANSETRON HCL 4MG/2ML INJ IV PRN (07:15)
[2019-03-01] MEDS: ENOXAPARIN 40MG/0.4ML SYR SUBCUT SCH (07:22)
[2019-03-01] MEDS ORDERED: DILTIAZEM HCL 125 MG in DEXTROSE 5% WATER 125 ML IV PRN (07:30)
[2019-03-01] MEDS ORDERED: INFLUENZA VIRUS VACCINE(AFLURIA) 0.5ML SYR IM ONE (10:00)
[2019-03-01] MEDS: INSULIN LISPRO 100 UNITS/ML SUBCUT SCH ×3 (11:52→21:00)
[2019-03-01] MEDS: BLOOD SUGAR DIAGNOSTIC STRIP TEST SCH ×3 (11:52→21:16)
[2019-03-01] MEDS: SODIUM CHLORIDE 0.9% INJ 3ML FLUSH IVF SCH ×2 (12:13→21:16)
[2019-03-01] MEDS ORDERED: LOSA25TA26 PO (13:44)
[2019-03-01] MEDS ORDERED: OMEP20TA15 PO (13:44)
[2019-03-01] MEDS ORDERED: FURO80TA3 PO (13:44)
[2019-03-01] MEDS ORDERED: CARV25TA47 MT (13:44)
[2019-03-01] MEDS: GUAIFENESIN 200MG/10ML SUGAR FREE UDC PO PRN ×2 (14:43→20:04)
[2019-03-01 15:22] LABS: CREATINE KINASE 34 IU/L (26-192)
[2019-03-01 15:23] LABS: CREATINE KINASE MB FRACTION < 1.0 ng/mL (0.5-3.6)
[2019-03-02] VITALS (46 sets, daily range): BP systolic 96–152; BP diastolic 40–96
[2019-03-02 00:32] LABS: CREATINE KINASE 51 IU/L (26-192)
[2019-03-02 00:33] LABS: CREATINE KINASE MB FRACTION < 1.0 ng/mL (0.5-3.6)
[2019-03-02 05:33] LABS: BASOPHILS % 0.6 % (0.0-2.0); EOSINOPHILS % 3.7 % (0.0-5.0); HEMOGLOBIN. 12.4 g/dL (12.0-16.0); LYMPHOCYTES % 17.4 % (20.0-50.0); MEAN CORPUSCULAR HEMOGLOBIN 31.1 pg (28.0-32.0); MEAN CORPUSCULAR VOLUME 95.5 fL (81.0-99.0); MEAN PLATELET VOLUME 9.7 fl (7.4-10.4); MONOCYTES % 11.7 % (2.0-8.0); NEUTROPHILS % 66.6 % (40.0-76.0); PLATELET 257 x1000/uL (130-400); RED BLOOD CELL COUNT 3.98 mill/uL (4.2-5.4); RED CELL DISTRIBUTION WIDTH 13.5 % (11.6-14.6)
[2019-03-02 05:41] LABS: CHLORIDE 106 mEq/L (98-107)
[2019-03-02 05:50] LABS: LDL CHOLESTEROL 38 mg/dL (5-100)
[2019-03-02 05:52] LABS: HDL CHOLESTEROL 27 mg/dL (40-59); T4 FREE 0.92 ng/dL (0.76-1.46)
[2019-03-02] MEDS: SODIUM CHLORIDE 0.9% INJ 3ML FLUSH IVF SCH ×3 (06:00→21:00)
[2019-03-02] MEDS: BLOOD SUGAR DIAGNOSTIC STRIP TEST SCH ×4 (08:08→20:58)
[2019-03-02] MEDS: INSULIN LISPRO 100 UNITS/ML SUBCUT SCH ×4 (08:09→21:16)
[2019-03-02] MEDS ORDERED: DILTIAZEM HCL 5MG/ML 5ML VIAL IV SCH (08:30)
[2019-03-02] MEDS: ENOXAPARIN 40MG/0.4ML SYR SUBCUT SCH (08:33)
[2019-03-02] MEDS: GUAIFENESIN 200MG/10ML SUGAR FREE UDC PO PRN ×2 (08:36→22:55)
[2019-03-02] MEDS ORDERED: METHYLPREDNISOLONE SOD SUCC 125 MG/2 ML VIAL IV SCH (10:15)
[2019-03-02 10:27] LABS: BG BASE EXCESS 1.2 mmol/L (-2.0-2.0); BG CARBOXYHEMOGLOBIN 0.9 % (0.5-1.5); BG DEOXYHEMOGLOBIN 4.9 % (0.0-5.0); BG HCO3 ACT 28.1 mmol/L (22.0-26.0); BG OXYGEN SATURATION 95.1 % (92.0-98.5); BG OXYHEMOGLOBIN 94.2 % (94.0-97.0); BG PCO2 54.1 mmHg (35.0-45.0); BG PH 7.333 (7.350-7.450); BG PO2 79.3 mmHg (75.0-100.0); BG SAMPLE SITE RIGHT RADIAL; BG TOTAL HEMOGLOBIN 12.9 g/dL (12.0-18.0); BG VENT MODE NASAL CANNULA
[2019-03-02] MEDS ORDERED: ENOXAPARIN 40MG/0.4ML SYR SUBCUT SCH (14:00)
[2019-03-02] MEDS: DILTIAZEM HCL 60MG TABLET PO SCH ×2 (14:15→21:00)
[2019-03-02 14:50] LABS: INR 1.1; PROTHROMBIN TIME 11.3 sec (9.6-11.0)
[2019-03-02] MEDS: IPRATROPIUM/ALBUTEROL 0.5-3(2.5)MG/3ML NEB HHN SCH ×2 (16:56→20:43)
[2019-03-02] MEDS: METHYLPREDNISOLONE SOD SUCC 40 MG/ML VIAL IV SCH (17:49)
[2019-03-02] MEDS: ENOXAPARIN 80MG/0.8ML SYR SUBCUT SCH (20:58)
[2019-03-02] MEDS: HYDROCODONE/ACETAMINOPHEN 5/325MG TABLET PO PRN (23:53)
[2019-03-03] VITALS (62 sets, daily range): BP systolic 65–192; BP diastolic 23–136
[2019-03-03] MEDS: IPRATROPIUM/ALBUTEROL 0.5-3(2.5)MG/3ML NEB HHN SCH ×6 (00:26→20:29)
[2019-03-03] MEDS: METHYLPREDNISOLONE SOD SUCC 40 MG/ML VIAL IV SCH ×2 (03:00→08:32)
[2019-03-03] MEDS: SODIUM CHLORIDE 0.9% INJ 3ML FLUSH IVF SCH ×3 (06:12→22:00)
[2019-03-03] MEDS: DILTIAZEM HCL 60MG TABLET PO SCH (06:13)
[2019-03-03] MEDS: BLOOD SUGAR DIAGNOSTIC STRIP TEST SCH ×4 (08:11→21:19)
[2019-03-03] MEDS: INSULIN LISPRO 100 UNITS/ML SUBCUT SCH ×4 (08:21→21:18)
[2019-03-03] MEDS: DOCUSATE SODIUM 100MG CAPSULE PO PRN (08:32)
[2019-03-03] MEDS: ENOXAPARIN 80MG/0.8ML SYR SUBCUT SCH ×2 (08:32→20:29)
[2019-03-03] MEDS: HYDROCODONE/ACETAMINOPHEN 5/325MG TABLET PO PRN (10:43)
[2019-03-03] MEDS: DILTIAZEM HCL 30MG TABLET PO SCH ×2 (12:21→17:09)
[2019-03-03] MEDS: AMIODARONE HCL 200 MG TABLET PO SCH ×2 (12:22→20:31)
[2019-03-03] MEDS: BENZONATATE 100MG CAPSULE PO SCH ×2 (15:20→23:15)
[2019-03-04] VITALS (47 sets, daily range): BP systolic 100–154; BP diastolic 51–98
[2019-03-04] MEDS: DILTIAZEM HCL 30MG TABLET PO SCH ×4 (00:01→17:23)
[2019-03-04] MEDS: IPRATROPIUM/ALBUTEROL 0.5-3(2.5)MG/3ML NEB HHN SCH ×6 (01:30→20:20)
[2019-03-04 05:26] LABS: BASOPHILS % 0.1 % (0.0-2.0); EOSINOPHILS % 0.1 % (0.0-5.0); HEMATOCRIT. 37.5 % (36.0-48.0); HEMOGLOBIN. 12.2 g/dL (12.0-16.0); LYMPHOCYTES % 10.7 % (20.0-50.0); MEAN CORPUSCULAR HEMOGLOBIN 31.1 pg (28.0-32.0); MEAN CORPUSCULAR VOLUME 95.6 fL (81.0-99.0); MEAN PLATELET VOLUME 9.4 fl (7.4-10.4); MONOCYTES % 6.5 % (2.0-8.0); NEUTROPHILS % 82.6 % (40.0-76.0); PLATELET 278 x1000/uL (130-400); RED BLOOD CELL COUNT 3.92 mill/uL (4.2-5.4); RED CELL DISTRIBUTION WIDTH 13.9 % (11.6-14.6)
[2019-03-04 05:29] LABS: CHLORIDE 104 mEq/L (98-107)
[2019-03-04] MEDS: BENZONATATE 100MG CAPSULE PO SCH ×3 (06:32→23:18)
[2019-03-04] MEDS: SODIUM CHLORIDE 0.9% INJ 3ML FLUSH IVF SCH ×3 (06:33→22:21)
[2019-03-04] MEDS: BLOOD SUGAR DIAGNOSTIC STRIP TEST SCH ×4 (08:04→21:24)
[2019-03-04] MEDS: INSULIN LISPRO 100 UNITS/ML SUBCUT SCH ×4 (08:05→21:00)
[2019-03-04] MEDS: AMIODARONE HCL 200 MG TABLET PO SCH ×2 (08:12→21:23)
[2019-03-04] MEDS: PREDNISONE 20MG TABLET PO SCH (08:13)
[2019-03-04] MEDS: ENOXAPARIN 80MG/0.8ML SYR SUBCUT SCH ×2 (10:20→21:24)
[2019-03-04] MEDS: GUAIFENESIN 200MG/10ML SUGAR FREE UDC PO PRN (11:25)
[2019-03-04] MEDS: GUAIFENESIN/CODEINE 200-20MG/10ML UDC PO PRN ×2 (16:23→23:18)
[2019-03-05] VITALS: BP 125/66
[2019-03-05] MEDS: DILTIAZEM HCL 30MG TABLET PO SCH ×3 (00:11→14:39)
[2019-03-05] MEDS: IPRATROPIUM/ALBUTEROL 0.5-3(2.5)MG/3ML NEB HHN SCH ×5 (00:13→15:56)
[2019-03-05 04:00] VITALS: BP 138/66
[2019-03-05] MEDS: SODIUM CHLORIDE 0.9% INJ 3ML FLUSH IVF SCH ×2 (06:08→14:40)
[2019-03-05] MEDS: BENZONATATE 100MG CAPSULE PO SCH ×2 (06:09→14:42)
[2019-03-05 06:11] LABS: BASOPHILS % 0.2 % (0.0-2.0); CHLORIDE 107 mEq/L (98-107); EOSINOPHILS % 0.7 % (0.0-5.0); HEMATOCRIT. 36.8 % (36.0-48.0); HEMOGLOBIN. 12.4 g/dL (12.0-16.0); LYMPHOCYTES % 14.2 % (20.0-50.0); MEAN CORPUSCULAR HEMOGLOBIN 31.9 pg (28.0-32.0); MEAN CORPUSCULAR VOLUME 94.4 fL (81.0-99.0); MONOCYTES % 10.8 % (2.0-8.0); NEUTROPHILS % 74.1 % (40.0-76.0); PLATELET 260 x1000/uL (130-400); RED CELL DISTRIBUTION WIDTH 14.2 % (11.6-14.6)
[2019-03-05] MEDS: BLOOD SUGAR DIAGNOSTIC STRIP TEST SCH ×2 (06:32→12:20)
[2019-03-05] MEDS: INSULIN LISPRO 100 UNITS/ML SUBCUT SCH ×2 (08:00→12:50)
[2019-03-05 08:31] VITALS: BP 118/75
[2019-03-05] MEDS: PREDNISONE 20MG TABLET PO SCH (10:27)
[2019-03-05] MEDS: AMIODARONE HCL 200 MG TABLET PO SCH (10:27)
[2019-03-05] MEDS: DOCUSATE SODIUM 100MG CAPSULE PO PRN (10:27)
[2019-03-05] MEDS: ENOXAPARIN 80MG/0.8ML SYR SUBCUT SCH (10:28)
[2019-03-05 12:08] VITALS: BP 117/81
[2019-03-05 13:38] VITALS: BP 20/117
[2019-03-05 16:06] VITALS: BP 135/59
== END 2019-03-05 15:00 | disposition home or self-care (01) | DRG 133 ==
LOC: ER 21:42 → CVICU 03-01 02:26 → EDBEDREQDT 03-01 02:33 → EDBEDREQTM 03-01 02:33 → EDBEDREQ 03-01 02:33 → EDBEDREQSVC 03-01 02:33 → ENRESERV 03-01 03:27 → 6WST 03-05 00:15
PROVIDERS: ADMIT Internal Medicine; ATTEND Internal Medicine
PROC: 5A09457 Assistance with Respiratory Ventilation, 24-96 Consecutive Hours, Continuous Positive Airway Pressure (ICD-10-PCS; principal; 2019-02-28)
DX: J96.00 Acute respiratory failure, unspecified whether with hypoxia or hypercapnia (principal); I31.3 Pericardial effusion (noninflammatory); E87.5 Hyperkalemia; J45.901 Unspecified asthma with (acute) exacerbation; I50.20 Unspecified systolic (congestive) heart failure; I11.0 Hypertensive heart disease with heart failure; J44.9 Chronic obstructive pulmonary disease, unspecified; I48.20 Chronic atrial fibrillation, unspecified; E11.9 Type 2 diabetes mellitus without complications; E78.5 Hyperlipidemia, unspecified; K44.9 Diaphragmatic hernia without obstruction or gangrene; I49.3 Ventricular premature depolarization; J98.11 Atelectasis; K57.90 Diverticulosis of intestine, part unspecified, without perforation or abscess without bleeding; K76.0 Fatty (change of) liver, not elsewhere classified; Z79.01 Long term (current) use of anticoagulants; Z79.899 Other long term (current) drug therapy
CPT/HCPCS: 36415; 36600; 71045; 71275; 74174; 80048; 80061; 82375; 82550; 82553; 82805; 82962; 83735; 83880; 84439; 84443; 84484; 87070; 90686; 93005; 93970; 94640; 94660; 96374; 97162; 99291; J1650; J1815; J2060; J2270; J2405; J2920; J2930; J3490; J7030; J7040; J7060; J7512; J7620; Q9967

== ENCOUNTER 2019-04-30 21:47 | Inpatient (IN) | payer MEDICAID ==
[~2019-04-30] VITALS: Ht 154.9 cm; Wt 63.5 kg
[~2019-04-30 21:47] MED LIST changes: -FAMO20TA8 PO
[2019-04-30] MEDS ORDERED: ONDANSETRON HCL 4MG/2ML INJ IV STA (22:34)
[2019-04-30] MEDS ORDERED: NITROGLYCERIN OINT 1GM/INCH UDPKT TD ONE (22:45)
[2019-04-30] MEDS ORDERED: FUROSEMIDE 40MG/4ML VIAL IV ONE (22:45)
[2019-04-30 22:53] LABS: BASOPHILS % 0.2 % (0.0-2.0); EOSINOPHILS % 2.3 % (0.0-5.0); HEMATOCRIT. 40.1 % (36.0-48.0); MEAN CORPUSCULAR HEMOGLOBIN 30.4 pg (28.0-32.0); MEAN CORPUSCULAR VOLUME 93.9 fL (81.0-99.0); MEAN PLATELET VOLUME 8.6 fl (7.4-10.4); MONOCYTES % 11.1 % (2.0-8.0); NEUTROPHILS % 71.4 % (40.0-76.0); PLATELET 269 x1000/uL (130-400); RED BLOOD CELL COUNT 4.27 mill/uL (4.2-5.4); RED CELL DISTRIBUTION WIDTH 14.8 % (11.6-14.6)
[2019-04-30 22:57] LABS: CHLORIDE 106 mEq/L (98-107)
[2019-04-30 22:58] LABS: INR 1.2; PROTHROMBIN TIME 12.2 sec (9.6-11.0)
[2019-04-30] MEDS: METOPROLOL TARTRATE 5MG/5ML VIAL IV SCH (22:59)
[2019-04-30 23:43] LABS: BG BASE EXCESS 2.9 mmol/L (-2.0-2.0); BG BILEVEL POS AIRWAY PRESSURE 15/5; BG CARBOXYHEMOGLOBIN 0.6 % (0.5-1.5); BG DEOXYHEMOGLOBIN 2.1 % (0.0-5.0); BG FRACTION INSPIRED OXYGEN 40; BG HCO3 ACT 28.9 mmol/L (22.0-26.0); BG METHEMOGLOBIN 0.3 % (0.0-1.5); BG OXYGEN SATURATION 97.9 % (92.0-98.5); BG PCO2 50.4 mmHg (35.0-45.0); BG PH 7.377 (7.350-7.450); BG PO2 135.6 mmHg (75.0-100.0); BG SAMPLE SITE RIGHT RADIAL; BG TOTAL HEMOGLOBIN 12.7 g/dL (12.0-18.0); BG VENT MODE MASK - BIPAP; BG VENT RATE 18 set
[2019-05-01] VITALS (9 sets, daily range): BP systolic 90–112; BP diastolic 51–76
[2019-05-01] MEDS: METOPROLOL TARTRATE 5MG/5ML VIAL IV SCH (00:33)
[2019-05-01] MEDS ORDERED: ACETAMINOPHEN 325MG TABLET PO ONE (03:15)
[2019-05-01] MEDS ORDERED: ONDANSETRON HCL 4MG/2ML INJ IV PRN (09:15)
[2019-05-01] MEDS ORDERED: DEXTROSE 50% WATER 50ML SYRINGE IV PRN (09:15)
[2019-05-01] MEDS: FUROSEMIDE 40MG/4ML VIAL IVP SCH (10:28)
[2019-05-01] MEDS: ACETAMINOPHEN 325MG TABLET PO PRN (10:30)
[2019-05-01] MEDS: BLOOD SUGAR DIAGNOSTIC STRIP TEST SCH ×3 (12:47→21:00)
[2019-05-01] MEDS: INSULIN LISPRO 100 UNITS/ML SUBCUT SCH ×3 (13:00→21:00)
[2019-05-01] MEDS ORDERED: METHYLPREDNISOLONE SOD SUCC 40 MG/ML VIAL IV SCH (13:00)
[2019-05-01] MEDS: GUAIFENESIN 600MG ER TABLET PO SCH ×2 (14:26→20:57)
[2019-05-01] MEDS: LORATADINE 10MG TABLET PO SCH (14:30)
[2019-05-01] MEDS ORDERED: IPRATROPIUM/ALBUTEROL 0.5-3(2.5)MG/3ML NEB HHN SCH (16:00)
[2019-05-01 16:15] LABS: CLARITY URINE CLEAR (CLEAR); COLOR URINE YELLOW (YELLOW); KETONES URINE NEGATIVE (NEGATIVE); LEUKOCYTE ESTERASE URINE TRACE (NEGATIVE); NITRITE URINE NEGATIVE (NEGATIVE); OCCULT BLOOD URINE 1+ (NEGATIVE); PH URINE 5.5 (4.5-8.0); PROTEIN URINE NEGATIVE (NEGATIVE); UROBILINOGEN URINE 0.2 E.U./dL (0.2-1.0)
[2019-05-01 16:32] LABS: *AMPHETAMINES SCREEN URINE NEGATIVE (NEGATIVE)
[2019-05-01 16:33] LABS: *BARBITURATES SCREEN URINE NEGATIVE (NEGATIVE); *BENZODIAZEPINES SCREEN URINE NEGATIVE (NEGATIVE); *COCAINE SCREEN URINE NEGATIVE (NEGATIVE); METHADONE URINE SCREEN NEGATIVE (NEGATIVE); OPIATES URINE SCREEN NEGATIVE (NEGATIVE); PHENCYCLIDINE URINE SCREEN NEGATIVE (NEGATIVE)
[2019-05-01 16:34] LABS: CANNABINOID URINE SCREEN NEGATIVE (NEGATIVE)
[2019-05-01] MEDS: RIVAROXABAN 20 MG TABLET PO SCH (17:12)
[2019-05-01] MEDS: MONTELUKAST SODIUM 10MG TABLET PO SCH (17:12)
[2019-05-01] MEDS: CARVEDILOL 3.125 MG TABLET PO SCH (20:57)
[2019-05-01] MEDS: FAMOTIDINE 40MG TABLET PO SCH (20:58)
[2019-05-02] VITALS (7 sets, daily range): BP systolic 108–118; BP diastolic 56–79
[2019-05-02] MEDS: IPRATROPIUM BROMIDE (0.02%) 0.5MG/2.5ML NEB HHN SCH ×3 (01:10→21:10)
[2019-05-02] MEDS: ACETAMINOPHEN 325MG TABLET PO PRN (02:00)
[2019-05-02] MEDS: BLOOD SUGAR DIAGNOSTIC STRIP TEST SCH ×4 (07:30→21:40)
[2019-05-02 07:59] LABS: BASOPHILS % 0.2 % (0.0-2.0); EOSINOPHILS % 0.2 % (0.0-5.0); HEMATOCRIT. 36.9 % (36.0-48.0); HEMOGLOBIN. 12.2 g/dL (12.0-16.0); LYMPHOCYTES % 15.9 % (20.0-50.0); MEAN CORPUSCULAR HEMOGLOBIN 30.6 pg (28.0-32.0); MONOCYTES % 9.3 % (2.0-8.0); NEUTROPHILS % 74.4 % (40.0-76.0); PLATELET 256 x1000/uL (130-400); RED BLOOD CELL COUNT 3.97 mill/uL (4.2-5.4); RED CELL DISTRIBUTION WIDTH 14.4 % (11.6-14.6)
[2019-05-02] MEDS: INSULIN LISPRO 100 UNITS/ML SUBCUT SCH ×4 (08:00→21:47)
[2019-05-02 08:16] LABS: CHLORIDE 106 mEq/L (98-107)
[2019-05-02] MEDS: FUROSEMIDE 40MG/4ML VIAL IVP SCH (08:32)
[2019-05-02] MEDS: LISINOPRIL 10MG TABLET PO SCH (08:33)
[2019-05-02] MEDS: LORATADINE 10MG TABLET PO SCH (08:33)
[2019-05-02] MEDS: PREDNISONE 20MG TABLET PO SCH (08:33)
[2019-05-02] MEDS: GUAIFENESIN 600MG ER TABLET PO SCH ×2 (08:33→21:21)
[2019-05-02] MEDS: CARVEDILOL 3.125 MG TABLET PO SCH ×2 (08:34→21:22)
[2019-05-02] MEDS ORDERED: LISINOPRIL 2.5MG TABLET PO SCH (09:00)
[2019-05-02] MEDS ORDERED: METHYLPREDNISOLONE SOD SUCC 125 MG/2 ML VIAL IV NR (13:00)
[2019-05-02] MEDS: MONTELUKAST SODIUM 10MG TABLET PO SCH (16:42)
[2019-05-02] MEDS: RIVAROXABAN 20 MG TABLET PO SCH (16:42)
[2019-05-02] MEDS: METFORMIN HCL 500MG TABLET PO SCH (18:10)
[2019-05-02] MEDS ORDERED: GUAIFENESIN 600MG ER TABLET PO SCH (21:00)
[2019-05-02] MEDS: BUDESONIDE 0.5MG/2ML NEB HHN SCH (21:13)
[2019-05-02] MEDS: FAMOTIDINE 40MG TABLET PO SCH (21:21)
[2019-05-03] VITALS: BP 115/61
[2019-05-03] MEDS: HYDROCODONE/ACETAMINOPHEN 5/325MG TABLET PO PRN ×2 (01:29→20:43)
[2019-05-03] MEDS: IPRATROPIUM BROMIDE (0.02%) 0.5MG/2.5ML NEB HHN SCH ×6 (02:35→20:14)
[2019-05-03 04:00] VITALS: BP 104/65
[2019-05-03] MEDS: BLOOD SUGAR DIAGNOSTIC STRIP TEST SCH ×4 (06:08→20:26)
[2019-05-03 07:16] LABS: CHLORIDE 105 mEq/L (98-107)
[2019-05-03] MEDS: INSULIN LISPRO 100 UNITS/ML SUBCUT SCH ×4 (08:10→20:27)
[2019-05-03] MEDS: METFORMIN HCL 500MG TABLET PO SCH ×2 (08:10→17:11)
[2019-05-03] MEDS: BUDESONIDE 0.5MG/2ML NEB HHN SCH ×2 (08:51→20:14)
[2019-05-03] MEDS: LORATADINE 10MG TABLET PO SCH (08:52)
[2019-05-03] MEDS: FUROSEMIDE 40MG/4ML VIAL IVP SCH (08:52)
[2019-05-03] MEDS: PREDNISONE 20MG TABLET PO SCH (08:52)
[2019-05-03] MEDS: GUAIFENESIN 600MG ER TABLET PO SCH ×2 (08:53→20:42)
[2019-05-03] MEDS: CARVEDILOL 3.125 MG TABLET PO SCH ×2 (08:54→20:57)
[2019-05-03] MEDS: LISINOPRIL 10MG TABLET PO SCH (08:55)
[2019-05-03] MEDS: ACETAMINOPHEN 325MG TABLET PO PRN (10:30)
[2019-05-03] MEDS ORDERED: GUAIFENESIN 200MG/10ML SUGAR FREE UDC PO PRN (11:15)
[2019-05-03] MEDS ORDERED: DIGOXIN 500MCG/2ML AMP IV NR ×3 (11:30→20:15)
[2019-05-03 12:00] VITALS: BP 98/50
[2019-05-03 16:00] VITALS: BP 114/69
[2019-05-03] MEDS: MONTELUKAST SODIUM 10MG TABLET PO SCH (16:30)
[2019-05-03] MEDS: RIVAROXABAN 20 MG TABLET PO SCH (16:30)
[2019-05-03 20:00] VITALS: BP 126/75
[2019-05-03] MEDS: ZOLPIDEM TARTRATE 5MG TABLET PO PRN (20:42)
[2019-05-03] MEDS: FAMOTIDINE 20MG TABLET PO SCH (20:43)
[2019-05-03] MEDS ORDERED: SODIUM POLYSTYRENE SULFONATE 15 G/60 ML BOT PO NR (22:30)
[2019-05-04] VITALS (7 sets, daily range): BP systolic 96–130; BP diastolic 51–72
[2019-05-04] MEDS: IPRATROPIUM BROMIDE (0.02%) 0.5MG/2.5ML NEB HHN SCH ×6 (00:34→21:09)
[2019-05-04 07:54] LABS: BASOPHILS % 0.5 % (0.0-2.0); EOSINOPHILS % 0.7 % (0.0-5.0); HEMATOCRIT. 40.7 % (36.0-48.0); HEMOGLOBIN. 13.2 g/dL (12.0-16.0); LYMPHOCYTES % 18.2 % (20.0-50.0); MEAN CORPUSCULAR VOLUME 92.7 fL (81.0-99.0); MEAN PLATELET VOLUME 8.9 fl (7.4-10.4); MONOCYTES % 9.5 % (2.0-8.0); NEUTROPHILS % 71.1 % (40.0-76.0); PLATELET 288 x1000/uL (130-400); RED CELL DISTRIBUTION WIDTH 14.7 % (11.6-14.6)
[2019-05-04 08:05] LABS: CHLORIDE 104 mEq/L (98-107)
[2019-05-04] MEDS: INSULIN LISPRO 100 UNITS/ML SUBCUT SCH ×4 (08:10→20:18)
[2019-05-04] MEDS: BUDESONIDE 0.5MG/2ML NEB HHN SCH (08:17)
[2019-05-04] MEDS: PREDNISONE 20MG TABLET PO SCH (09:08)
[2019-05-04] MEDS: METFORMIN HCL 500MG TABLET PO SCH ×2 (09:08→17:01)
[2019-05-04] MEDS: FUROSEMIDE 40MG/4ML VIAL IVP SCH (09:08)
[2019-05-04] MEDS: GUAIFENESIN 600MG ER TABLET PO SCH ×2 (09:08→20:33)
[2019-05-04] MEDS: LOSARTAN POTASSIUM 25 MG TABLET PO SCH (09:09)
[2019-05-04] MEDS: CARVEDILOL 3.125 MG TABLET PO SCH ×2 (09:09→20:17)
[2019-05-04] MEDS: LORATADINE 10MG TABLET PO SCH (09:09)
[2019-05-04] MEDS: BLOOD SUGAR DIAGNOSTIC STRIP TEST SCH ×3 (12:14→20:18)
[2019-05-04] MEDS: DIGOXIN 500MCG/2ML AMP IV SCH ×2 (12:57→17:02)
[2019-05-04] MEDS: MONTELUKAST SODIUM 10MG TABLET PO SCH (17:01)
[2019-05-04] MEDS: RIVAROXABAN 20 MG TABLET PO SCH (17:01)
[2019-05-04] MEDS: FAMOTIDINE 20MG TABLET PO SCH (20:32)
[2019-05-04] MEDS: ZOLPIDEM TARTRATE 5MG TABLET PO PRN (20:33)
[2019-05-05] VITALS: BP 130/71
[2019-05-05] MEDS: IPRATROPIUM BROMIDE (0.02%) 0.5MG/2.5ML NEB HHN SCH ×4 (00:57→22:01)
[2019-05-05 04:00] VITALS: BP 122/65
[2019-05-05 07:58] LABS: BASOPHILS % 0.3 % (0.0-2.0); EOSINOPHILS % 0.8 % (0.0-5.0); HEMATOCRIT. 39.9 % (36.0-48.0); LYMPHOCYTES % 17.3 % (20.0-50.0); MEAN CORPUSCULAR HEMOGLOBIN 30.4 pg (28.0-32.0); MEAN CORPUSCULAR VOLUME 92.8 fL (81.0-99.0); MEAN PLATELET VOLUME 8.8 fl (7.4-10.4); MONOCYTES % 11.4 % (2.0-8.0); NEUTROPHILS % 70.2 % (40.0-76.0); PLATELET 291 x1000/uL (130-400); RED CELL DISTRIBUTION WIDTH 14.4 % (11.6-14.6)
[2019-05-05 08:00] VITALS: BP 113/67
[2019-05-05] MEDS: BLOOD SUGAR DIAGNOSTIC STRIP TEST SCH ×4 (08:00→21:51)
[2019-05-05] MEDS: INSULIN LISPRO 100 UNITS/ML SUBCUT SCH ×4 (08:00→21:00)
[2019-05-05 08:29] LABS: CHLORIDE 103 mEq/L (98-107)
[2019-05-05] MEDS ORDERED: GUAIFENESIN-DM 200MG-20MG/10ML UDC PO PRN (09:30)
[2019-05-05] MEDS: PREDNISONE 20MG TABLET PO SCH (09:31)
[2019-05-05] MEDS: METFORMIN HCL 500MG TABLET PO SCH ×2 (09:31→17:57)
[2019-05-05] MEDS: LORATADINE 10MG TABLET PO SCH (09:31)
[2019-05-05] MEDS: CARVEDILOL 3.125 MG TABLET PO SCH ×2 (09:32→21:49)
[2019-05-05] MEDS: LOSARTAN POTASSIUM 25 MG TABLET PO SCH (09:32)
[2019-05-05] MEDS: FUROSEMIDE 40MG/4ML VIAL IVP SCH (09:33)
[2019-05-05] MEDS: BUDESONIDE 0.5MG/2ML NEB HHN SCH ×2 (10:04→22:01)
[2019-05-05 12:00] VITALS: BP 105/53
[2019-05-05 16:00] VITALS: BP 96/65
[2019-05-05] MEDS: MONTELUKAST SODIUM 10MG TABLET PO SCH (17:57)
[2019-05-05] MEDS: DIGOXIN 125MCG TABLET PO SCH (17:57)
[2019-05-05] MEDS: RIVAROXABAN 20 MG TABLET PO SCH (17:57)
[2019-05-05 20:00] VITALS: BP 116/65
[2019-05-05] MEDS: ZOLPIDEM TARTRATE 5MG TABLET PO PRN (21:49)
[2019-05-05] MEDS: FAMOTIDINE 20MG TABLET PO SCH (21:49)
[2019-05-06] VITALS: BP 124/55
[2019-05-06] MEDS: IPRATROPIUM BROMIDE (0.02%) 0.5MG/2.5ML NEB HHN SCH ×4 (02:11→19:56)
[2019-05-06 04:00] VITALS: BP 126/67
[2019-05-06] MEDS: BLOOD SUGAR DIAGNOSTIC STRIP TEST SCH ×4 (07:41→21:38)
[2019-05-06] MEDS: INSULIN LISPRO 100 UNITS/ML SUBCUT SCH ×4 (07:42→21:00)
[2019-05-06 08:00] VITALS: BP 123/67
[2019-05-06] MEDS: LOSARTAN POTASSIUM 25 MG TABLET PO SCH (09:10)
[2019-05-06] MEDS: PREDNISONE 20MG TABLET PO SCH (09:10)
[2019-05-06] MEDS: METFORMIN HCL 500MG TABLET PO SCH ×2 (09:10→17:40)
[2019-05-06] MEDS: CARVEDILOL 3.125 MG TABLET PO SCH ×2 (09:10→21:38)
[2019-05-06] MEDS: LORATADINE 10MG TABLET PO SCH (09:10)
[2019-05-06] MEDS: FUROSEMIDE 40MG/4ML VIAL IVP SCH (09:10)
[2019-05-06] MEDS: BUDESONIDE 0.5MG/2ML NEB HHN SCH ×2 (09:27→19:55)
[2019-05-06 12:00] VITALS: BP 118/74
[2019-05-06] MEDS: BENZONATATE 100MG CAPSULE PO SCH ×2 (13:24→21:40)
[2019-05-06 16:00] VITALS: BP 119/56
[2019-05-06] MEDS: RIVAROXABAN 20 MG TABLET PO SCH (17:40)
[2019-05-06] MEDS: DIGOXIN 125MCG TABLET PO SCH (17:40)
[2019-05-06] MEDS: MONTELUKAST SODIUM 10MG TABLET PO SCH (17:40)
[2019-05-06 20:00] VITALS: BP 110/54
[2019-05-06] MEDS: FAMOTIDINE 20MG TABLET PO SCH (21:37)
[2019-05-06] MEDS: ZOLPIDEM TARTRATE 5MG TABLET PO PRN (21:37)
[2019-05-07] VITALS: BP 119/72
[2019-05-07] MEDS: IPRATROPIUM BROMIDE (0.02%) 0.5MG/2.5ML NEB HHN SCH ×3 (02:10→13:33)
[2019-05-07 04:00] VITALS: BP 123/53
[2019-05-07] MEDS: BENZONATATE 100MG CAPSULE PO SCH (05:27)
[2019-05-07 08:00] VITALS: BP 136/74
[2019-05-07] MEDS: INSULIN LISPRO 100 UNITS/ML SUBCUT SCH ×2 (08:10→12:56)
[2019-05-07] MEDS: BLOOD SUGAR DIAGNOSTIC STRIP TEST SCH ×2 (08:29→12:56)
[2019-05-07] MEDS ORDERED: DILTIAZEM HCL 120MG TABLET PO SCH (09:00)
[2019-05-07] MEDS: LOSARTAN POTASSIUM 25 MG TABLET PO SCH (09:25)
[2019-05-07] MEDS: FUROSEMIDE 40MG/4ML VIAL IVP SCH (09:25)
[2019-05-07] MEDS: CARVEDILOL 3.125 MG TABLET PO SCH (09:25)
[2019-05-07] MEDS: LORATADINE 10MG TABLET PO SCH (09:25)
[2019-05-07] MEDS: PREDNISONE 20MG TABLET PO SCH (09:25)
[2019-05-07] MEDS: METFORMIN HCL 500MG TABLET PO SCH (09:26)
[2019-05-07] MEDS: BUDESONIDE 0.5MG/2ML NEB HHN SCH (09:32)
[2019-05-07 14:46] VITALS: BP 133/68
== END 2019-05-07 15:40 | disposition home or self-care (01) | DRG 133 ==
LOC: ER 21:47 → 5EST 05-01 00:07 → EDBEDREQTM 05-01 00:09 → EDBEDREQ 05-01 00:09 → EDBEDREQDT 05-01 00:09 → ENRESERV 05-01 07:37 → 7WST 05-02 13:49
PROVIDERS: ADMIT Internal Medicine; ATTEND Internal Medicine
PROC: 5A09357 Assistance with Respiratory Ventilation, Less than 24 Consecutive Hours, Continuous Positive Airway Pressure (ICD-10-PCS; principal; 2019-04-30)
DX: J96.01 Acute respiratory failure with hypoxia (principal); I50.43 Acute on chronic combined systolic (congestive) and diastolic (congestive) heart failure; E87.2 Acidosis; J45.901 Unspecified asthma with (acute) exacerbation; E87.5 Hyperkalemia; I42.9 Cardiomyopathy, unspecified; I11.0 Hypertensive heart disease with heart failure; M94.0 Chondrocostal junction syndrome [Tietze]; I48.20 Chronic atrial fibrillation, unspecified; E11.9 Type 2 diabetes mellitus without complications; K44.9 Diaphragmatic hernia without obstruction or gangrene; E78.5 Hyperlipidemia, unspecified; Z79.01 Long term (current) use of anticoagulants; Z83.3 Family history of diabetes mellitus; Z88.6 Allergy status to analgesic agent; Z82.49 Family history of ischemic heart disease and other diseases of the circulatory system; Z88.0 Allergy status to penicillin; Z98.891 History of uterine scar from previous surgery
CPT/HCPCS: 36415; 36600; 71045; 80048; 80053; 80162; 80305; 81003; 82375; 82805; 82962; 83880; 84484; 85025; 93005; 96374; 96375; 97162; J1160; J1815; J1940; J2405; J2920; J2930; J3490; J7512; J7626